=== PATIENT | female | born 1995 | race American Indian/Alaskan Native ===

== ENCOUNTER 2021-08-28 10:57 | Emergency (ER) | payer SELFPAY ==
[2021-08-28 11:09] VITALS: BP 136/88
[2021-08-28] MEDS ORDERED: ONDANSETRON 4 MG ODT TAB PO ONE (11:28)
[2021-08-28] MEDS ORDERED: HYOSCYAMINE SUBL 0.125 MG TAB SL ONE (11:28)
[2021-08-28 11:57] LABS: Hematocrit 40.8 % (30.3-42.9); Hemoglobin 13.3 gm/dl (10.1-14.3); Mean Corpuscular HGB Conc 33 % (30-34); Mean Corpuscular Volume 91 fl (79-97); Platelet Count 262 K/mm3 (140-440); Red Blood Count 4.51 M/mm3 (3.65-5.03); Red Cell Distribution Width 14.2 % (13.2-15.2)
--- NOTE | 2021-08-28 12:11 | Emergency Department Report ---
ED General Adult HPI - General Chief complaint: Upper Respiratory Infection Stated complaint: BODYACHES Time Seen by Provider: 08/28/21 11:20 Source: patient Mode of arrival: Ambulatory Limitations: No Limitations - History of Present Illness Initial comments: Patient is a 26-year-old female presents emergency room complaints of nausea, vomiting, diarrhea that began 4 days ago. She states that she is able to tolerate p.o. intake. She states that she has more of the diarrhea than the vomiting. She has associated abdominal cramping. Patient states that she also been having generalized body aches and sore throat. She reports that she did go get tested for COVID-19 but is awaiting her results. She denies any fever, cough, shortness of breath, chest pain. No past medical history. No allergies to medications. Severity scale (0 -10): 6 - Related Data Previous Rx's Medication Instructions Recorded Last Taken Type Hyoscyamine Subl [Levsin Sl 0.125 0.125 mg SL Q6HR PRN #10 tab 08/28/21 Unknown Rx TAB] Nystas/Diphen/Xyl Visc/Mylanta 30 ml PO Q4HR PRN #300 ml 08/28/21 Unknown Rx [Magic Mouthwash] Ondansetron [Zofran Odt] 4 mg PO Q8HR PRN #10 tab.rapdis 08/28/21 Unknown Rx Allergies Allergy/AdvReac Type Severity Reaction Status Date / Time No Known Allergies Allergy Unverified 08/28/21 11:02 ED Review of Systems ROS: Stated complaint: BODYACHES Other details as noted in HPI Comment: All other systems reviewed and negative ED Past Medical Hx - Past Medical History Previous Medical History?: No - Surgical History Past Surgical History?: No - Medications Home Medications: Home Medications Medication Instructions Recorded Confirmed Last Taken Type Hyoscyamine Subl [Levsin Sl 0.125 0.125 mg SL Q6HR PRN #10 tab 08/28/21 Unknown Rx TAB] Nystas/Diphen/Xyl Visc/Mylanta 30 ml PO Q4HR PRN #300 ml 08/28/21 Unknown Rx [Magic Mouthwash] Ondansetron [Zofran Odt] 4 mg PO Q8HR PRN #10 tab.rapdis 08/28/21 Unknown Rx ED Physical Exam - General Limitations: No Limitations General appearance: alert, in no apparent distress - Head Head exam: Present: atraumatic, normocephalic - Eye Eye exam: Present: normal appearance - ENT ENT exam: Present: mucous membranes moist - Respiratory Respiratory exam: Present: normal lung sounds bilaterally. Absent: respiratory distress, wheezes, rales, rhonchi, stridor, chest wall tenderness, accessory muscle use, decreased breath sounds, prolonged expiratory - Cardiovascular Cardiovascular Exam: Present: regular rate, normal rhythm, normal heart sounds. Absent: systolic murmur, diastolic murmur, rubs, gallop - GI/Abdominal GI/Abdominal exam: Present: soft, normal bowel sounds. Absent: distended, tenderness, guarding, rebound, rigid - Neurological Exam Neurological exam: Present: alert, oriented X3 - Psychiatric Psychiatric exam: Present: normal affect, normal mood - Skin Skin exam: Present: warm, dry, intact ED Course Vital Signs 08/28/21 11:08 Temperature 98.5 F Pulse Rate 83 Respiratory 20 Rate Blood Pressure 136/88 [Right] ED Medical Decision Making - Lab Data Result diagrams: 08/28/21 11:34 08/28/21 11:34 Lab Results 08/28/21 08/28/21 08/28/21 Range/Units 11:34 11:34 11:34 WBC 2.6 L (4.5-11.0) K/mm3 RBC 4.51 (3.65-5.03) M/mm3 Hgb 13.3 (10.1-14.3) gm/dl Hct 40.8 (30.3-42.9) % MCV 91 (79-97) fl MCH 30 (28-32) pg MCHC 33 (30-34) % RDW 14.2 (13.2-15.2) % Plt Count 262 (140-440) K/mm3 Clay % (Auto) Communication Professor Seg Neutrophils % Communication Professor Sodium 138 (137-145) mmol/L Potassium 3.9 (3.6-5.0) mmol/L Chloride 103.4 (98-107) mmol/L Carbon Dioxide 22 (22-30) mmol/L Anion Gap 17 mmol/L BUN 7 (7-17) mg/dL Creatinine 0.8 (0.6-1.2) mg/dL Estimated GFR > 60 ml/min BUN/Creatinine Ratio 9 % Glucose 103 H (65-100) mg/dL Calcium 9.1 (8.4-10.2) mg/dL Total Bilirubin 0.20 (0.1-1.2) mg/dL AST 21 (5-40) units/L ALT 14 (7-56) units/L Alkaline Phosphatase 86 (35-129) units/L Total Protein 7.5 (6.3-8.2) g/dL Albumin 4.3 (3.9-5) g/dL Albumin/Globulin Ratio 1.3 % Lipase 29 (13-60) units/L HCG, Qual Negative (Negative) - Medical Decision Making Patient is a 26-year-old female presents emergency room complaints of nausea, vomiting, diarrhea that began 4 days ago. She states that she is able to tolerate p.o. intake. She states that she has more of the diarrhea than the vomiting. She has associated abdominal cramping. Patient states that she also been having generalized body aches and sore throat. She reports that she did go get tested for COVID-19 but is awaiting her results. She denies any fever, cough, shortness of breath, chest pain. No past medical history. No allergies to medications. Vitals are stable. On exam breath sounds are clear bilaterally, no wheezing, no rales, no rhonchi, normal oropharynx, no abdominal tenderness. Labs are stable. Patient given p.o. medications with improvement of her symptoms. She was able to tolerate p.o. intake with no difficulty and had no episodes of vomiting or diarrhea while in the ER. Symptoms likely related to URI versus viral illness. Advised patient Please take medication as prescribed as needed. Increase your fluid intake. Eat a bland liquid diet and slowly advance her diet as tolerated. Follow-up with your primary care doctor. Return to emergency room for any new or worsening symptoms. If your COVID-19 test comes back positive that you took you will need to self quarantine for 10 days from onset of symptoms. Critical care attestation.: If time is entered above; I have spent that time in minutes in the direct care of this critically ill patient, excluding procedure time. ED Disposition Clinical Impression: Nausea vomiting and diarrhea, Sore throat, Generalized body aches Disposition: 01 HOME / SELF CARE / HOMELESS Is pt being admited?: No Does the pt Need Aspirin: No Condition: Stable Instructions: Viral Illness, Adult Additional Instructions: Please take medication as prescribed as needed. Increase your fluid intake. Eat a bland liquid diet and slowly advance her diet as tolerated. Follow-up with your primary care doctor. Return to emergency room for any new or worsening symptoms. If your COVID-19 test comes back positive that you took you will need to self quarantine for 10 days from onset of symptoms. Prescriptions: Hyoscyamine Subl [Levsin Sl 0.125 TAB] 0.125 mg SL Q6HR PRN #10 tab PRN Reason: diarrhea/abdominal cramping Nystas/Diphen/Xyl Visc/Mylanta [Magic Mouthwash] 30 ml PO Q4HR PRN #300 ml PRN Reason: sore throat Ondansetron [Zofran Odt] 4 mg PO Q8HR PRN #10 tab.rapdis PRN Reason: nausea/vomiting Referrals: DUDLEY STRONG MD [Staff Physician] - 3-5 Days [facility] [Provider Group] - 3-5 Days Time of Disposition: 12:23 Print Language: BURMESE
[2021-08-28 12:19] LABS: Alanine Aminotransferase 14 units/L (7-56); Albumin 4.3 g/dL (3.9-5); BUN/Creatinine Ratio 9; Blood Urea Nitrogen 7 mg/dL (7-17); Calcium 9.1 mg/dL (8.4-10.2); Hemolysis Index 14
[2021-08-28 15:49] LABS: Anisocytosis 1+; Band Neutrophils # (Manual) 0.1 K/mm3; Platelet Estimate Consistent w Auto; Total Cells Counted 100
== END 2021-08-28 12:43 | disposition home or self-care (01) ==
LOC: ED 10:57
DX: R11.2 Nausea with vomiting, unspecified (principal); R19.7 Diarrhea, unspecified; M79.18 Myalgia, other site; J02.9 Acute pharyngitis, unspecified; Z79.899 Other long term (current) drug therapy
CPT/HCPCS: 36415; 80053; 83690; 84703; 85007; 85025; 99283; J3490; Q0162